=== PATIENT | male | born 1995 | race African-American/Black ===

== ENCOUNTER 2016-12-04 09:47 | Emergency (ER) | payer SELFPAY ==
[2016-12-04] MEDS ORDERED: HYDROMORPHONE PF 1 MG/ML DISP.SYRIN. ONE (09:51)
[2016-12-04] MEDS: HYDROMORPHONE PF 1 MG/ML DISP.SYRIN. IV/SQ PRN ×3 (09:55→11:27)
[2016-12-04] MEDS ORDERED: ONDANSETRON PF 4 MG/2 ML VIAL. IV ONE (10:00)
[2016-12-04] MEDS ORDERED: KETOROLAC 30 MG/ML VIAL. IV ONE (10:00)
--- NOTE | 2016-12-04 10:15 | RAD ---
EXAM: Left thumb, 3 views. HISTORY: Bulging. COMPARISON: None. FINDINGS: Frontal, lateral and oblique views of the left thumb are obtained. There is dislocation of the first metacarpal phalangeal joint. No associated fracture is seen. IMPRESSION: Left first metacarpophalangeal joint dislocation.
[2016-12-04] MEDS: IV NORMAL SALINE 1,000ML 1,000 ML IV SCH ×2 (10:18→10:19)
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
[2016-12-04 11:15] VITALS: BP 109/53
== END 2016-12-04 11:35 | disposition short-term general hospital (02) ==
LOC: ER 09:47
DX: S63.115A Dislocation of metacarpophalangeal joint of left thumb, initial encounter (principal); Z88.0 Allergy status to penicillin; W23.0XXA Caught, crushed, jammed, or pinched between moving objects, initial encounter; Y93.55 Activity, bike riding; Y99.8 Other external cause status; Y92.89 Other specified places as the place of occurrence of the external cause
CPT/HCPCS: 73140; 96361; 96374; 96375; 96376; 99285; J1170; J1885; J7030